=== PATIENT | female | born 1940 | race Caucasian/White ===

== ENCOUNTER → 2017-01-02 | Day surgery (SDC) | payer MEDICARE ==
[~2017-01-02] MED LIST: ACTIVELLA TABLE1 TAB PO; ALIGN4 MG PO; ASPIRIN81 M2 PO; B-121000 MC1 PO; CELECOXIB200 MG PO; KEFLEX PO; LEXAPRO20 MG PO; LIPITOR20 MG PO; LISINOPRIL10 MG PO; METFORMIN HCL500 M1 PO; MULTI VITAMIN1 EACH PO; MULTI-VITAMIN1 TAB PO; NASONEX17 GM; OXYBUTYNIN CHLO15 MG PO; OYSTER CALCIUM500 MG PO; PROBIOTIC1 EAC3 PO; VESICARE; VICODIN 5/1 TAB 5/50 PO; VITAMIN D1000 UNI1 PO; ZESTORETIC 10/11 TAB PO
--- NOTE | ~2017-01-02 | OR ---
Unit #: [id number] #: [id number] Patient: MALCOLM RIOS [id number] [address] [address] [id number] MR#: [id number] NAME: MALCOLM RIOS ROOM: Date of Procedure: 01/02/2017 Admission Date: 01/02/2017 Surgeon: Home Lockhart M.D. : 1940 Attending Physician: Home Lockhart M.D. Primary Care Physician: Marco Antonio Alvarez M.D. OPERATIVE REPORT PREOPERATIVE DIAGNOSES 1. Screening colonoscopy. 2. History of colonic polyps. POSTOPERATIVE DIAGNOSES 1. 0.2 cm polyp, ascending colon. 2. Sigmoid diverticular disease. PROCEDURES PERFORMED 1. Colonoscopy to cecum. 2. Snare electrocautery polypectomy and retrieval of ascending colon polyp. ANESTHESIA IV sedation. COMPLICATIONS None. INDICATIONS FOR PROCEDURE The patient is a 76-year-old, who presents with a history of polyps. She presents for colonoscopy. DESCRIPTION OF PROCEDURE The patient was taken to the operating theater and placed in the left lateral decubitus position. IV sedation was initiated. Digital rectal exam was normal. Colonoscope was then passed under vision and navigated to the cecum. The patient had excellent prep. I identified a polyp approximately 10 cm from the cecum. This was removed and retrieved with snare electrocautery polypectomy. I measured approximately 0.2 cm in diameter. Hemostasis was adequate. She had sigmoid diverticular disease. No other neoplastic lesions. She tolerated the procedure well and sent to the recovery room in good condition. PLAN Recommend followup on her biopsy. Dictated by... Home Lockhart M.D. Unit #: [id number] #: [id number] Patient: MALCOLM RIOS SARINAO/modl TD: 01/03/2017 02:25 JOB #: [id number] OPERATIVE REPORT Page 1 of 1 X Home Lockhart MD PROCEDURE OPERATIVE NOTE
== END | disposition home or self-care (01) ==
LOC: COPS 10:26
DX: Z12.11 Encounter for screening for malignant neoplasm of colon (principal); D12.2 Benign neoplasm of ascending colon; K57.30 Diverticulosis of large intestine without perforation or abscess without bleeding; E11.9 Type 2 diabetes mellitus without complications; I10 Essential (primary) hypertension; Z86.010 Personal history of colon polyps; Z87.09 Personal history of other diseases of the respiratory system; Z88.1 Allergy status to other antibiotic agents; Z88.8 Allergy status to other drugs, medicaments and biological substances; Z79.82 Long term (current) use of aspirin; Z79.1 Long term (current) use of non-steroidal anti-inflammatories (NSAID); Z79.84 Long term (current) use of oral hypoglycemic drugs; Z79.899 Other long term (current) drug therapy; Z98.41 Cataract extraction status, right eye; Z98.42 Cataract extraction status, left eye; Z96.653 Presence of artificial knee joint, bilateral; Z98.890 Other specified postprocedural states
CPT/HCPCS: 82947; 88305